=== PATIENT | female | born 1975 | race American Indian/Alaskan Native ===

== ENCOUNTER 2018-12-03 10:18 | Outpatient (CLI) | payer OTHER ==
--- NOTE | 2018-12-03 11:44 | Ultrasound Report ---
ULTRASOUND-GUIDED NEEDLE ASPIRATION RIGHT BREAST CLINICAL: A 3.5 cm symptomatic cyst of the right breast at 10:00. FINDINGS: The procedure was explained to the patient and informed consent was obtained. Ultrasound demonstrated the previously identified 3.5 cm cyst at 10:00 3 cm from the nipple. I marked the breast with a felt tip marker and a timeout was called. The skin was prepped with Chloro -Prep and anesthetized with 1% lidocaine. Ultrasound-guided needle aspiration was performed with 1% lidocaine for anesthesia and using two 18-g auge needles. 15 cc of cloudy yellow fluid was removed and the cyst showed complete collapse. The flu id was discarded. The patient tolerated the procedure well and there were no apparent complications. Hemostasis was achieved with minimal effort and a sterile dressing was applied. IMPRESSION: Uncomplicated ultrasound guided cyst aspiration right breast. Signer Name: Obdulio Sanchez MD Signed: 12/03/2018 11:40 AM Workstation Name: [id number]
== END 2018-12-03 10:19 | disposition home or self-care (01) ==
LOC: SPVWC 10:18
PROVIDERS: ATTEND Surgery
DX: N60.01 Solitary cyst of right breast (principal)

== ENCOUNTER 2018-12-17 09:07 | Outpatient (CLI) | payer OTHER | END 2018-12-17 09:08 | disposition home or self-care (01) | LOC: LABHHL 09:07 | PROVIDERS: ATTEND Surgery | DX: N60.02 Solitary cyst of left breast (principal) | CPT/HCPCS: 88112 ==

== ENCOUNTER 2019-01-28 08:09 | Outpatient (CLI) | payer OTHER | END 2019-01-28 08:10 | disposition home or self-care (01) | LOC: LABHHL 08:09 | PROVIDERS: ATTEND Surgery | DX: N60.01 Solitary cyst of right breast (principal) | CPT/HCPCS: 88112 ==